=== PATIENT | male | born 1965 | race Caucasian/White ===

== ENCOUNTER 2017-11-04 15:34 | Emergency (ER) | payer MEDICARE, MEDICAID ==
[2017-11-04 15:48] VITALS: BMI 28.0
--- NOTE | 2017-11-04 15:48 | ED PDOC ---
Arrival/HPI - General Time Seen by Provider: 11/04/17 15:48 Historian: Patient - History of Present Illness Narrative History of Present Illness (Text): 11/04/17 15:48 52 year old male, pmh including hypertension/hyperlipidemia/diabetes, last tetanus over 10 years ago, nkda, complaining of accidental fall with multiple abrasions. Pt. stated that he was walking, accidentally tripped, landed on the lt. knee/wrist/hand/facial region, no LOC, multiple abrasions, no neck or back pain, no palpitation, no chest pain or shortness of breath, no night sweat, no other medical or psychological complaints. Past Medical History - Provider Review Nursing Documentation Reviewed: Yes - Cardiac Hx Cardiac Disorders: Yes Hx Hypertension: Yes - Pulmonary Hx Respiratory Disorders: No - Neurological Hx Neurological Disorder: Yes (periods of confusion) Other/Comment: 5 YEARS AGO RUPTURED ANEURYSM-HAD CRANIOTOMY. PT. ON DEPACOTE FOR PREVENTIVE REASONS. - HEENT Hx HEENT Disorder: No - Renal Hx Renal Disorder: No - Endocrine/Metabolic Hx Endocrine Disorders: Yes Hx Diabetes Mellitus Type 2: Yes - Hematological/Oncological Hx Blood Disorders: No - Integumentary Hx Dermatological Disorder: No - Musculoskeletal/Rheumatological Hx Musculoskeletal Disorders: Yes (KNEE PAIN) - Gastrointestinal Hx Gastrointestinal Disorders: Yes (constipation) - Genitourinary/Gynecological Hx Genitourinary Disorders: No - Psychiatric Hx Psychophysiologic Disorder: Yes Hx Bipolar Disorder: Yes Hx Schizophrenia: Yes - Surgical History Other/Comment: CRANIOTOMY 5 YEARS AGO FOR RUPTURED ANEURYSM. exc cyst of back - Anesthesia Hx Anesthesia: Yes Hx Anesthesia Reactions: No Hx Malignant Hyperthermia: No - Suicidal Assessment Feels Threatened In Home Enviroment: No Family/Social History - Physician Review Nursing Documentation Reviewed: Yes Family/Social History: Unknown Family HX Smoking Status: Former Smoker Hx Alcohol Use: No Allergies/Home Meds Allergies/Adverse Reactions: Allergies No Known Allergies Allergy (Verified 05/11/15 12:58) Home Medications: Home Meds Medication Instructions Recorded Confirmed DULoxetine [Cymbalta] 60 mg PO DAILY 05/11/15 11/04/17 Divalproex [Depakote] 3 tab PO HS 05/11/15 11/04/17 Enalapril Maleate [Vasotec] 5 mg PO DAILY 05/11/15 11/04/17 Gabapentin [Neurontin] 300 mg PO DAILY 01/22/16 11/04/17 GlipiZIDE [Glucotrol] 10 mg PO BID 01/22/16 11/04/17 Insulin Detemir [Levemir] 20 units SC HS 01/22/16 11/04/17 Rosuvastatin Calcium [Crestor] 20 mg PO DAILY 01/22/16 11/04/17 Sitagliptin Phos/Metformin HCl 1 tab PO DAILY 01/22/16 11/04/17 [Janumet 50-1,000 mg Tablet] Benztropine [Benztropine Mesylate] 2 mg PO BID 03/19/16 11/04/17 Dapagliflozin Propanediol [Farxiga] 5 mg PO DAILY 03/19/16 11/04/17 Haloperidol Lactate [Haloperidol 100 mg IM WM 03/19/16 11/04/17 Lactate Novaplus] Haloperidol [Haldol] 10 mg PO DAILY 03/19/16 11/04/17 Review of Systems - Review of Systems Constitutional: absent: Fatigue, Fevers Eyes: absent: Vision Changes ENT: absent: Hearing Changes Respiratory: absent: SOB, Cough Cardiovascular: absent: Chest Pain Gastrointestinal: absent: Abdominal Pain, Nausea, Vomiting, Anorexia Musculoskeletal: Myalgias. absent: Arthralgias, Back Pain, Neck Pain, Joint Swelling Skin: Skin Lesions. absent: Rash, Pruritis, Laceration, Abscess, Ulcer, Cellulitis Neurological: absent: Headache Psychiatric: absent: Anxiety, Depression Physical Exam Vital Signs Reviewed: Yes Vital Signs Temp Pulse Resp BP Pulse Ox 11/04/17 19:15 85 18 121/78 97 11/04/17 17:58 94 H 18 118/79 97 11/04/17 15:51 98.5 F 104 H 18 122/86 96 Temperature: Afebrile Blood Pressure: Normal Pulse: Tachycardic Respiratory Rate: Normal Appearance: Positive for: Well-Appearing, Non-Toxic, Comfortable Pain Distress: Moderate Mental Status: Positive for: Alert and Oriented X 3 - Systems Exam Head: Present: Atraumatic, Normocephalic, Other (Facial: +ttp on the lt. facial cheek and chin region with superficial abrasion and swelling noted on the lt. facial cheek and lt. chin region average each abrasion 1.5cm diameter. ). No: Tenderness, Contusion, Swelling, Ecchymosis, Abrasion, Laceration Pupils: Present: PERRL Extroacular Muscles: Present: EOMI Conjunctiva: Present: Normal Ears: Present: NORMAL TM, Normal Canal. No: Erythema Mouth: Present: Moist Mucous Membranes Pharnyx: Present: Normal. No: ERYTHEMA, EXUDATE, TONSILS ENLARGED Nose (External): Present: Atraumatic. No: Abrasion, Contusion, Laceration Nose (Internal): Present: Normal Inspection, No Active Bleeding. No: Rhinorrhea , Septal Hematoma, Epistaxis Neck: Present: Normal Range of Motion, Trachea Midline. No: Meningeal Signs, MIDLINE TENDERNESS, Paraspinal Tenderness, Lymphadenopathy Respiratory/Chest: Present: Clear to Auscultation, Good Air Exchange. No: Respiratory Distress, Accessory Muscle Use Cardiovascular: Present: Regular Rate and Rhythm, Normal S1, S2. No: Murmurs Abdomen: No: Tenderness, Distention, Peritoneal Signs, Rebound, Guarding Back: Present: Normal Inspection. No: CVA Tenderness, Midline Tenderness, Paraspinal Tenderness, Pain with Leg Raise, Decubitus Ulcer Upper Extremity: Present: Normal Inspection, Other (LUE: +ttp on the distal radial region with superficial abrasion 1cm diameter, +ttp on the 3rd MCPJ dorsum superficial abrasion approx. 1cm noted, no deformity, no scaphoid tenderness, FROM without limitation, sensation intact, motor 5/5, +radial pulse , capillary refill< 2 seconds, neurovascular intact. ). No: Cyanosis, Edema Lower Extremity: Present: Normal Inspection, Other (Lt. knee: +ttp on the lt. anterior knee patellar region with superficial abrasion approx. 1cm diameter, no streaking or ulcer, negative nikole and bond signs, FROM without limitation, sensation intact, motor 5/5, +DPPT Pulses, capillary refill< 2 seconds, neurovascular intact. ). No: Edema Neurological: Present: GCS=15, CN II-XII Intact, Speech Normal Skin: Present: Warm, Dry, Normal Color. No: Rashes Psychiatric: Present: Alert, Oriented x 3, Normal Insight, Normal Concentration Medical Decision Making ED Course and Treatment: 11/04/17 16:02 -CT head/facial -Lt. knee/hand/wrist xray -Percocet/Tdap -Wound irrigated with saline 1000cc, clean with betadine, bacitracin and gauze dressing. 11/04/17 19:01 -CT head No acute hemorrhage. -CT maxillofacial Unremarkable non contrast enhanced CT of the maxillofacial bones. -Lt. knee xray no fracture or dislocation -Lt. hand xray no fracture or dislocation -Lt. wrist xray no fracture or dislocation -Discharge home with bacitracin oinment, motrin, ice compression, bed rest, follow up with your own pmd and orthopedic within 2 days, return to the ER for any new or worsening signs or symptoms. - RAD Interpretation Radiology Orders: 11/04/17 15:56 HEAD W/O CONTRAST [CT] Stat MAXILLOFACIAL W/O CONTRAST [CT] Stat HAND LEFT 3 VIEWS ROUTINE [RAD] Stat KNEE WITH PATELLA LEFT 3 VIEW [RAD] Stat WRIST, LEFT 3 VIEWS [RAD] Stat CT Head: PROCEDURE: CT HEAD WITHOUT CONTRAST. HISTORY: fall COMPARISON: None available. TECHNIQUE: Axial computed tomography images were obtained through the head/brain without intravenous contrast. Radiation dose: Total exam DLP = mGy-cm. This CT exam was performed using one or more of the following dose reduction techniques: Automated exposure control, adjustment of the mA and/or kV according to patient size, and/or use of iterative reconstruction technique. FINDINGS: HEMORRHAGE: No intracranial hemorrhage. BRAIN: No mass effect or edema. No atrophy or chronic microvascular ischemic changes. VENTRICLES: Unremarkable. No hydrocephalus. CALVARIUM: Status post bilateral craniotomies. PARANASAL SINUSES: Unremarkable as visualized. No significant inflammatory changes. MASTOID AIR CELLS: Unremarkable as visualized. No inflammatory changes. OTHER FINDINGS: None. IMPRESSION: No acute hemorrhage. CT facial: PROCEDURE: CT MAXILLOFACIAL BONES WITHOUT CONTRAST HISTORY: Fall, abrasion, pain COMPARISON: None TECHNIQUE: Contiguous axial CT images of the maxillofacial bones were obtained. Coronal and sagittal reformats were generated. Radiation dose: Total exam DLP = mGy-cm. This CT exam was performed using one or more of the following dose reduction techniques: Automated exposure control, adjustment of the mA and/or kV according to patient size, and/or use of iterative reconstruction technique. FINDINGS: NASAL BONES: Unremarkable. ORBITS: Unremarkable. PARANASAL SINUSES/ MASTOIDS: Clear. MAXILLA: Unremarkable. MANDIBLE/ TEMPOROMANDIBULAR JOINTS: Unremarkable. SKULL BASE: Unremarkable. TEMPORAL BONES: Middle ears and mastoid grossly unremarkable. OTHER FINDINGS: None. IMPRESSION: Unremarkable non contrast enhanced CT of the maxillofacial bones. Lt. hand xray: HISTORY: fall, abrasion, pain COMPARISON: None. FINDINGS: BONES: Normal. No fractureMacro rad bone neg. JOINTS: Normal. No osteoarthritic changes. SOFT TISSUES: Normal. OTHER FINDINGS: None. IMPRESSION: Unremarkable left hand radiographs. Lt. wrist xray: HISTORY: fall, abrasion, pain COMPARISON: None. FINDINGS: BONES: No acute fracture or destructive bony lesion identified. JOINTS: Normal. No dislocation. SOFT TISSUES: Trace calcification is seen in the subcutaneous dorsal soft tissue of the proximal wrist of uncertain origin. No emphysema soft tissue changes are identified or soft tissue edema. OTHER FINDINGS: None. IMPRESSION: No acute fracture or dislocation appreciated. No destructive bony lesion evident , including navicular bone. Trace soft tissue calcification noted in the dorsal proximal wrist soft tissues, seen best on lateral view. - Lt. knee xray: HISTORY: Pain. COMPARISON: None. FINDINGS: BONES: No acute fracture or destructive bony lesion identified. JOINTS: Normal. No osteoarthritis. JOINT EFFUSION: None. OTHER FINDINGS: None. IMPRESSION: Unremarkable radiographs of the left knee. 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 No Tetanus/Reduced Diphtheria/Acell Pertussis (Boostrix Vaccine Inj) 0.5 ml IM .ONCE ONE Stop: 11/04/17 15:57 Last Admin: 11/04/17 16:20 Dose: 0.5 ml - PA / RESPIRATORY CARE SPECIALIST / Resident Statement / has reviewed & agrees with the documentation as recorded. Disposition/Present on Arrival - Present on Arrival Any Indicators Present on Arrival: No History of DVT/PE: No History of Uncontrolled Diabetes: No Urinary Catheter: No History of Decub. Ulcer: No - Disposition Have Diagnosis and Disposition been Completed?: Yes Diagnosis: Fall, Abrasion, Contusion Disposition: HOME/ ROUTINE Disposition Time: 16:04 Patient Plan: Discharge Condition: IMPROVED Additional Instructions: -Discharge home with bacitracin oinment, motrin, ice compression, bed rest, follow up with your own pmd and orthopedic within 2 days, return to the ER for any new or worsening signs or symptoms. Prescriptions: Bacitracin Ointment [Bacitracin] 1 appful TOP BID #30 g Ibuprofen [Motrin] 600 mg PO TID #21 tab Referrals: Juancarlos Kiran III, MD [Medical Doctor] - Follow up with primary [facility] [place]] - Follow up with primary Forms: WORK NOTE
[2017-11-04 15:51] VITALS: RESP 18; TEMP 98.5
[2017-11-04] MEDS ORDERED: Oxycodone/Acetaminophen 5/325 mg Tab PO STA (15:56)
[2017-11-04] MEDS ORDERED: TDAP Vaccine 0.5 mL Syr IM ONE (15:56)
--- NOTE | 2017-11-04 17:06 | CT ---
PROCEDURE: CT HEAD WITHOUT CONTRAST. HISTORY: fall COMPARISON: None available. TECHNIQUE: Axial computed tomography images were obtained through the head/brain without intravenous contrast. Radiation dose: Total exam DLP = mGy-cm. This CT exam was performed using one or more of the following dose reduction techniques: Automated exposure control, adjustment of the mA and/or kV according to patient size, and/or use of iterative reconstruction technique. FINDINGS: HEMORRHAGE: No intracranial hemorrhage. BRAIN: No mass effect or edema. No atrophy or chronic microvascular ischemic changes. VENTRICLES: Unremarkable. No hydrocephalus. CALVARIUM: Status post bilateral craniotomies. PARANASAL SINUSES: Unremarkable as visualized. No significant inflammatory changes. MASTOID AIR CELLS: Unremarkable as visualized. No inflammatory changes. OTHER FINDINGS: None. IMPRESSION: No acute hemorrhage.
--- NOTE | 2017-11-04 17:12 | CT ---
PROCEDURE: CT MAXILLOFACIAL BONES WITHOUT CONTRAST HISTORY: Fall, abrasion, pain COMPARISON: None TECHNIQUE: Contiguous axial CT images of the maxillofacial bones were obtained. Coronal and sagittal reformats were generated. Radiation dose: Total exam DLP = mGy-cm. This CT exam was performed using one or more of the following dose reduction techniques: Automated exposure control, adjustment of the mA and/or kV according to patient size, and/or use of iterative reconstruction technique. FINDINGS: NASAL BONES: Unremarkable. ORBITS: Unremarkable. PARANASAL SINUSES/ MASTOIDS: Clear. MAXILLA: Unremarkable. MANDIBLE/ TEMPOROMANDIBULAR JOINTS: Unremarkable. SKULL BASE: Unremarkable. TEMPORAL BONES: Middle ears and mastoid grossly unremarkable. OTHER FINDINGS: None. IMPRESSION: Unremarkable non contrast enhanced CT of the maxillofacial bones.
[2017-11-04 17:58] VITALS: O2SAT 97
[2017-11-05 00:10] VITALS: BP 121/78; PULSE 85
--- NOTE | 2017-11-05 08:37 | RAD ---
PROCEDURE: Left Hand Radiographs. HISTORY: fall, abrasion, pain COMPARISON: None. FINDINGS: BONES: Normal. No fractureMacro rad bone neg. JOINTS: Normal. No osteoarthritic changes. SOFT TISSUES: Normal. OTHER FINDINGS: None. IMPRESSION: Unremarkable left hand radiographs.
--- NOTE | 2017-11-05 08:53 | RAD ---
PROCEDURE: Left Wrist Radiographs. HISTORY: fall, abrasion, pain COMPARISON: None. FINDINGS: BONES: No acute fracture or destructive bony lesion identified. JOINTS: Normal. No dislocation. SOFT TISSUES: Trace calcification is seen in the subcutaneous dorsal soft tissue of the proximal wrist of uncertain origin. No emphysema soft tissue changes are identified or soft tissue edema. OTHER FINDINGS: None. IMPRESSION: No acute fracture or dislocation appreciated. No destructive bony lesion evident, including navicular bone. Trace soft tissue calcification noted in the dorsal proximal wrist soft tissues, seen best on lateral view.
--- NOTE | 2017-11-05 08:54 | RAD ---
PROCEDURE: Left Knee Radiographs. HISTORY: Pain. COMPARISON: None. FINDINGS: BONES: No acute fracture or destructive bony lesion identified. JOINTS: Normal. No osteoarthritis. JOINT EFFUSION: None. OTHER FINDINGS: None. IMPRESSION: Unremarkable radiographs of the left knee.
== END 2017-11-04 19:15 | disposition home or self-care (01) ==
LOC: ED 15:34
DX: S00.81XA Abrasion of other part of head, initial encounter (principal); S40.812A Abrasion of left upper arm, initial encounter; S80.212A Abrasion, left knee, initial encounter; W01.0XXA Fall on same level from slipping, tripping and stumbling without subsequent striking against object, initial encounter; Y92.9 Unspecified place or not applicable; Z23 Encounter for immunization